=== PATIENT | female | born 1970 | race Caucasian/White ===

== ENCOUNTER → 2021-03-02 | Outpatient (CLI) | payer OTHER | LOC: US 12-28 10:30 → MAMO 12-28 10:30 → US 02-06 15:00 → MAMO 02-06 15:30 | DX: Z12.31 Encounter for screening mammogram for malignant neoplasm of breast (principal); M79.89 Other specified soft tissue disorders; R59.9 Enlarged lymph nodes, unspecified | CPT/HCPCS: 76881; 77063; 77067 ==

== ENCOUNTER → 2021-04-30 | Outpatient (CLI) | payer OTHER ==
[2021-05-01 08:13] LABS: COMPLEMENT C3, SERUM 124 mg/dL (82-167); COMPLEMENT C4, SERUM 20 mg/dL (12-38); RHEUMATOID ARTHRITIS FACTOR 11.5 IU/mL (0.0-13.9)
[2021-05-01 12:13] LABS: HBSAG SCREEN Negative (Negative); HCV AB <0.1 (0.0-0.9); HEP B CORE AB, TOT Negative (Negative)
[2021-05-01 18:08] LABS: DSDNA CRITHIDIA LUCILIAE IFA Negative (Negative)
== END ==
LOC: LAB 11:39
PROVIDERS: Nurse Practitioner Family
DX: D89.9 Disorder involving the immune mechanism, unspecified (principal); M25.50 Pain in unspecified joint; R76.8 Other specified abnormal immunological findings in serum; M32.9 Systemic lupus erythematosus, unspecified; M13.0 Polyarthritis, unspecified; Z79.899 Other long term (current) drug therapy
CPT/HCPCS: 82570; 83520; 84156; 85652; 86140; 86160; 86162; 86200; 86255; 86431; 86704; 86803; 87340

== ENCOUNTER → 2021-05-02 | Outpatient (CLI) | payer OTHER | LOC: US 03-27 13:30 | DX: R92.8 Other abnormal and inconclusive findings on diagnostic imaging of breast (principal) | CPT/HCPCS: 76641 ==